=== PATIENT | female | born 1940 | race Two or more races ===

== ENCOUNTER 2017-11-18 15:21 | Outpatient (CLI) | payer OTHER ==
[~2017-11-18 15:21] MED LIST: CARAFATE; CELEBREX; INTESTINEX1 CAP PO; LEVOXYL50 MCG PO; MICARDIS HCT1 UDTA1 PO; PRILOSEC40 MG PO; ZANTAC150 MG PO
== END 2017-11-18 15:28 | disposition home or self-care (01) ==
LOC: MAMO-SONO 15:21
DX: Z12.31 Encounter for screening mammogram for malignant neoplasm of breast (principal); Z87.898 Personal history of other specified conditions; N60.11 Diffuse cystic mastopathy of right breast; R10.2 Pelvic and perineal pain

== ENCOUNTER → 2019-03-07 10:27 | Outpatient (CLI) | payer OTHER | END | disposition home or self-care (01) | LOC: LAB 10:27 | DX: R10.84 Generalized abdominal pain (principal); A05.8 Other specified bacterial foodborne intoxications; M19.91 Primary osteoarthritis, unspecified site ==

== ENCOUNTER 2021-01-17 11:38 | Emergency (ER) | payer OTHER ==
[~2021-01-17] VITALS: Ht 154.9 cm; Wt 74.8 kg
[2021-01-17] MEDS ORDERED: HYZAAR 100-12.1 EACH (11:58)
== END 2021-01-17 18:43 | disposition home or self-care (01) ==
LOC: ER 11:38
DX: N20.1 Calculus of ureter (principal)

== ENCOUNTER 2021-02-03 09:53 | Outpatient (CLI) | payer OTHER ==
[~2021-02-03 09:53] MED LIST changes: +HYZAAR 100-12.1 EACH
== END 2021-02-03 10:07 | disposition home or self-care (01) ==
LOC: SONOGRAMA 09:53
PROVIDERS: ATTEND Surgery
DX: N20.1 Calculus of ureter (principal)

== ENCOUNTER 2021-06-22 16:35 | Emergency (ER) | payer OTHER ==
[~2021-06-22] VITALS: Ht 154.9 cm; Wt 77.1 kg
[2021-06-22] MEDS ORDERED: TRICOR48 MG (17:01)
[2021-06-22] MEDS ORDERED: METOCLOPRAMIDE10 MG PO (23:23)
[2021-06-22] MEDS ORDERED: MEDI-MECLIZINE25 MG PO (23:23)
== END 2021-06-22 23:18 | disposition home or self-care (01) ==
LOC: ER 16:35
DX: R42 Dizziness and giddiness (principal); R53.1 Weakness; R11.0 Nausea; Z03.818 Encounter for observation for suspected exposure to other biological agents ruled out

== ENCOUNTER 2021-09-28 14:02 | Outpatient (CLI) | payer OTHER ==
[~2021-09-28 14:02] MED LIST changes: +MEDI-MECLIZINE25 MG PO; +METOCLOPRAMIDE10 MG PO; +TRICOR48 MG
== END 2021-09-28 14:08 | disposition home or self-care (01) ==
LOC: RAD 14:02
PROVIDERS: ATTEND Physical Medicine & Rehabilitation
DX: S43.401D Unspecified sprain of right shoulder joint, subsequent encounter (principal); M79.645 Pain in left finger(s)

== ENCOUNTER 2021-12-27 11:19 | Outpatient (CLI) | payer OTHER | END 2021-12-27 11:20 | disposition home or self-care (01) | LOC: NUCLEAR 11:19 | PROVIDERS: ATTEND Internal Medicine Cardiovascular Disease | DX: M81.0 Age-related osteoporosis without current pathological fracture (principal); E55.9 Vitamin D deficiency, unspecified ==

== ENCOUNTER 2021-12-27 12:02 | Outpatient (CLI) | payer OTHER | END 2021-12-27 12:06 | disposition home or self-care (01) | LOC: MAMO-SONO 12:02 | PROVIDERS: ATTEND Internal Medicine Cardiovascular Disease | DX: N63.11 Unspecified lump in the right breast, upper outer quadrant (principal); N60.11 Diffuse cystic mastopathy of right breast; N60.12 Diffuse cystic mastopathy of left breast ==

== ENCOUNTER 2022-04-02 09:30 | Inpatient (IN) | payer OTHER ==
[~2022-04-02] VITALS: Ht 154.9 cm; Wt 77.1 kg
[2022-04-17] MEDS ORDERED: VOLTAREN ARTHRI20 GM PO (12:05)
[2022-04-17] MEDS ORDERED: CLONAZEPAM0.5 M1 PO (12:06)
[2022-04-19] MEDS ORDERED: ACETAMINOPHEN325 M1 (13:41)
== END 2022-04-21 11:35 | disposition home or self-care (01) | DRG 583 ==
LOC: O/R 04-19 06:50 → SURG 04-19 06:50
PROVIDERS: ADMIT Specialist; ATTEND Specialist
PROC: 0HTT0ZZ Resection of Right Breast, Open Approach (ICD-10-PCS; principal; 2022-04-19 12:00)
DX: D05.11 Intraductal carcinoma in situ of right breast (principal); Z20.822 Contact with and (suspected) exposure to COVID-19

== ENCOUNTER 2023-03-05 10:48 | Outpatient (CLI) | payer OTHER ==
[~2023-03-05 10:48] MED LIST changes: +ACETAMINOPHEN325 M1; +CLONAZEPAM0.5 M1 PO; +VOLTAREN ARTHRI20 GM PO
== END 2023-03-05 10:55 | disposition home or self-care (01) ==
LOC: MAMO-SONO 10:48
PROVIDERS: ATTEND Specialist
DX: D05.11 Intraductal carcinoma in situ of right breast (principal)

== ENCOUNTER 2024-03-18 14:19 | Outpatient (CLI) | payer OTHER | END 2024-03-18 14:25 | disposition home or self-care (01) | LOC: MAMO-SONO 14:19 | PROVIDERS: ATTEND Internal Medicine Hematology & Oncology | DX: C50.411 Malignant neoplasm of upper-outer quadrant of right female breast (principal); Z85.3 Personal history of malignant neoplasm of breast; Z12.31 Encounter for screening mammogram for malignant neoplasm of breast ==

== ENCOUNTER 2024-06-24 11:44 | Outpatient (CLI) | payer OTHER | END 2024-06-24 11:45 | disposition home or self-care (01) | LOC: SONOGRAMA 11:44 | PROVIDERS: ATTEND Urology | DX: N39.0 Urinary tract infection, site not specified (principal) ==

== ENCOUNTER 2024-08-13 14:02 | Outpatient (CLI) | payer OTHER | END 2024-08-13 14:07 | disposition home or self-care (01) | LOC: RAD 14:02 | DX: M25.561 Pain in right knee (principal); M25.562 Pain in left knee ==

== ENCOUNTER 2024-09-07 09:06 | Outpatient (CLI) | payer OTHER ==
[2024-09-07 10:09] LABS: HEMATOCRIT 38.6 % (36.0-45.00); HEMOGLOBIN 12.9 g/dL (12.0-15.00); MEAN CELL VOLUME 86.2 fL (80.00-100.00); MEAN CORPUSCULAR HEMOGLOBIN 28.9 pg (27.00-32.0); MEAN CORPUSCULAR HGB CONC 33.5 g/dl (32.0-36.0); PLATELET COUNT 246 K/uL (150-450); RED BLOOD COUNT 4.48 M/uL (4.00-6.00); RED CELL DISTRIBUTION WIDTH 14.2 % (11.5-14.5)
[2024-09-07 10:17] LABS: PH,URINE 5.5 (5.0-8.0); URINE APPEARANCE Clear; URINE BILIRRUBIN Negative (NEGATIVE); URINE BLOOD Negative; URINE COLOR Yellow; URINE GLUCOSE Negative (NEGATIVE); URINE KETONE Negative (NEGATIVE); URINE LEUKOCYTE Small; URINE NITRATE Negative; URINE PROTEIN Negative (NEGATIVE); URINE UROBILINOGEN 0.2 E.U./dl
[2024-09-07 10:21] LABS: URINE BACTERIA 138.2 uL (0.0-1933); URINE EPITHELIAL CELLS 4.1 uL (0.0-38.8); URINE RBC 3.3 uL (0.0-20.8); URINE WBC 25.1 uL (0.0-23.2)
[2024-09-07 10:21] LABS: COL EPI 70 SECONDS (82-175)
[2024-09-07 10:28] LABS: INR 1.03; PARTIAL THROMBOPLASTIN TIME 24.5 SECONDS (22.0-34.0); PROTHROMBIN TIME 11.2 SECONDS (9.0-11.5)
[2024-09-07 10:47] LABS: ALBUMIN 3.9 gm/dL (3.4-5.0); BILIRUBIN TOTAL 0.68 mg/dL (0.3-1.2); CALCIUM 9.7 mg/dL (8.5-10.1); CREATININE SERUM 0.97 mg/dL (0.55-1.02); GFR 54.98; GLOBULINA 2.9 G/DL (2.4-3.5); POTASSIUM 4.73 mEq/L (3.5-5.1); TOTAL PROTEIN 6.8 gm/dL (6.4-8.2)
[2024-09-07 11:53] LABS: URINE CAST 0.14 uL (0.0-1.40)
== END 2024-09-07 09:07 | disposition home or self-care (01) ==
LOC: RAD 09:06
PROVIDERS: ATTEND Orthopaedic Surgery
DX: Z76.89 Persons encountering health services in other specified circumstances (principal); D64.9 Anemia, unspecified; E88.89 Other specified metabolic disorders; D68.8 Other specified coagulation defects; N39.0 Urinary tract infection, site not specified; Z22.322 Carrier or suspected carrier of Methicillin resistant Staphylococcus aureus; E11.9 Type 2 diabetes mellitus without complications

== ENCOUNTER 2024-10-19 14:29 | Inpatient (IN) | payer OTHER ==
[~2024-10-19] VITALS: Ht 165.1 cm; Wt 76.2 kg
--- NOTE | 2024-10-19 14:41 | NUR ---
PTE ALERTA Y ORIENTADA X3 VERBALIZA TENER PALPITACIONES CAUNDO DEVEN DIANE TRAMADOL LUEGO DE DIANE OPERACION DE RODILLA. SE LE FELIPE S/V Y SE UBICA
[2024-10-19] MEDS ORDERED: KETOROLAC TROMETHAMINE 30 MG VIAL IM STA (16:24)
[2024-10-19] MEDS ORDERED: KETOROLAC TROMETHAMINE 30 MG VIAL ONE (16:26)
[2024-10-19 16:32] LABS: HEMATOCRIT 40.7 % (36.0-45.00); HEMOGLOBIN 13.6 g/dL (12.0-15.00); MEAN CELL VOLUME 87.3 fL (80.00-100.00); MEAN CORPUSCULAR HEMOGLOBIN 29.2 pg (27.00-32.0); MEAN CORPUSCULAR HGB CONC 33.5 g/dl (32.0-36.0); PLATELET COUNT 316 K/uL (150-450); RED BLOOD COUNT 4.66 M/uL (4.00-6.00); RED CELL DISTRIBUTION WIDTH 13.7 % (11.5-14.5)
--- NOTE | 2024-10-19 16:40 | NUR ---
PACIENTE ALERTA Y ORIENTADA X3. SE EDUCA A PACIENTE SOBRE THANH DE MUESTRA SY ADMINISTRACION DE MEDICAMENTOS, REFIERE ENTENDER. SE EJECUTAN ORDENES BAJO MEDIDAS ASEPTICAS.
[2024-10-19 17:03] LABS: ALBUMIN 4.1 gm/dL (3.4-5.0); BILIRUBIN TOTAL 0.62 mg/dL (0.3-1.2); CALCIUM 9.9 mg/dL (8.5-10.1); CREATININE SERUM 1.01 mg/dL (0.55-1.02); GFR 52.47; GLOBULINA 3.1 G/DL (2.4-3.5); POTASSIUM 4.23 mEq/L (3.5-5.1); TOTAL PROTEIN 7.2 gm/dL (6.4-8.2)
[2024-10-19] MEDS ORDERED: ASPIRIN 325 MG TABLET.EC PO ONE (18:50)
[2024-10-19] MEDS ORDERED: DIPHENHYDRAMINE HCL 50 MG/ML VIAL 1ML ONE (18:50)
[2024-10-19] MEDS ORDERED: METHYLPREDNISOLONE SOD SUCC 125 MG VIAL ONE (18:51)
[2024-10-19] MEDS ORDERED: ASPIRIN 325 MG TABLET PO ONE (19:15)
[2024-10-19] MEDS ORDERED: DIPHENHYDRAMINE HCL 50 MG/ML VIAL 1ML IV ONE (19:15)
[2024-10-19] MEDS ORDERED: NITROGLYCERIN IN 5 % DEXTROSE 250 ML IV SCH (19:45)
--- NOTE | 2024-10-19 19:50 | NUR ---
SE ORIENTA PTE SOBRE TX A SEGUIR, LA MISMA REFIERE ENTENDER. SE INTENTA EN VARIAAS OCASIONES CANALIZAR PTE CON DIFERENTES RN. NO HUBO EXITO.
[2024-10-19 20:11] LABS: ABG PH 7.468 (7.35-7.45); ABG PO2 96.7 mmHg (80-100); ABG pCO2 29.7 mmHg (35-45); BASE EXCESS -1.4 mmol/l; BICARBONATE 21.1 mmol/l (23-25); SaO2 97.9 %
[2024-10-19] MEDS ORDERED: ENOXAPARIN SODIUM 60 MG/0.6 ML SYRINGE SUBCUTANEO ONE (20:16)
[2024-10-19] MEDS ORDERED: NITROGLYCERIN IN 5 % DEXTROSE 50 MG/250 ML BOTTLE IV ONE (20:16)
[2024-10-19 20:35] LABS: D DIMER 2.21 MG/L; PARTIAL THROMBOPLASTIN TIME 25.5 SECONDS (22.0-34.0)
[2024-10-19 20:45] LABS: INR 1.05; PROTHROMBIN TIME 11.4 SECONDS (9.0-11.5)
[2024-10-19 20:58] LABS: allen test SATISFACTORY; o2 21 %; puncture site RADIAL LEFT
[2024-10-19] MEDS ORDERED: ENOXAPARIN SODIUM 60 MG/0.6 ML SYRINGE SUBCUTANEO SCH (21:00)
[2024-10-19 21:05] LABS: URINE APPEARANCE Clear; URINE BILIRRUBIN Negative (NEGATIVE); URINE BLOOD Negative; URINE COLOR Yellow; URINE GLUCOSE Negative (NEGATIVE); URINE KETONE Negative (NEGATIVE); URINE LEUKOCYTE Trace; URINE NITRATE Negative; URINE PROTEIN Negative (NEGATIVE); URINE UROBILINOGEN 0.2 E.U./dl
[2024-10-19 21:08] LABS: URINE BACTERIA 29.3 uL (0.0-1933); URINE EPITHELIAL CELLS 1.8 uL (0.0-38.8); URINE RBC 4.7 uL (0.0-20.8); URINE WBC 2.8 uL (0.0-23.2)
[2024-10-19] MEDS ORDERED: 0.9 % SODIUM CHLORIDE 1,000 ML IV SCH (21:15)
[2024-10-19] MEDS ORDERED: ATORVASTATIN CALCIUM 40 MG TABLET PO SCH (21:25)
[2024-10-19] MEDS ORDERED: TICAGRELOR 90 MG TABLET PO ONE (21:30)
[2024-10-19] MEDS ORDERED: ACETAMINOPHEN 500 MG GEL..CAP PO PRN (21:30)
[2024-10-19] MEDS ORDERED: ONDANSETRON HCL 4 MG in 0.9 % SODIUM CHLORIDE 50 ML IV PRN (21:30)
[2024-10-19] MEDS ORDERED: GABAPENTIN 100 MG CAPSULE PO SCH (21:45)
[2024-10-19 22:07] VITALS: BP 164/78
[2024-10-19 22:55] VITALS: BP 135/83; O2SAT 100
[2024-10-20] VITALS (16 sets, daily range): BP systolic 97–152; BP diastolic 50–104; O2SAT 98–100
[2024-10-20] MEDS ORDERED: ACETAMINOPHEN 500 MG GEL..CAP PO ONE (02:01)
[2024-10-20] MEDS ORDERED: TICAGRELOR 90 MG TABLET PO ONE (03:53)
[2024-10-20] MEDS ORDERED: TICAGRELOR 90 MG TABLET PO SCH (05:00)
[2024-10-20] MEDS ORDERED: ONDANSETRON 4 MG TAB.RAPDIS PO ONE (05:04)
[2024-10-20] MEDS ORDERED: LEVOTHYROXINE SODIUM 88 MCG TABLET PO SCH (06:00)
[2024-10-20] MEDS ORDERED: NITROGLYCERIN IN 5 % DEXTROSE 250 ML IV SCH (07:00)
[2024-10-20 07:40] LABS: TSH 2.57 uIU/mL (0.358-3.74)
[2024-10-20] MEDS ORDERED: ASPIRIN 81 MG TAB.CHEW PO SCH (09:00)
[2024-10-20] MEDS ORDERED: FAMOTIDINE/PF 20 MG in 0.9 % SODIUM CHLORIDE 8 ML IV PUSH SCH (09:00)
[2024-10-20] MEDS ORDERED: hydrALAZINE HCL 50 MG TABLET PO SCH (20:40)
[2024-10-20] MEDS ORDERED: CLONAZEPAM 0.5 MG TABLET PO SCH (21:00)
[2024-10-20] MEDS ORDERED: GABAPENTIN 100 MG CAPSULE PO SCH (21:00)
[2024-10-20] MEDS ORDERED: FAMOTIDINE IV PUSH SCH (21:40)
[2024-10-20] MEDS ORDERED: FAMOTIDINE/PF 20 MG/2 ML VIAL ONE (21:40)
[2024-10-20] MEDS ORDERED: LACTOBACILLUS ACIDOPHILUS 1 CAP CAP PO SCH (21:40)
[2024-10-20] MEDS ORDERED: SODIUM CHLORIDE 0.9% IV PUSH SCH (21:40)
[2024-10-20] MEDS ORDERED: BISMUTH SUBSALICYLATE 262 MG/15 ML BLIST.PACK PO PRN (23:45)
[2024-10-21] MEDS ORDERED: NITROGLYCERIN IN 5 % DEXTROSE 50 MG/250 ML BOTTLE IV ONE (03:35)
[2024-10-21 04:04] VITALS: BP 114/59; O2SAT 99
[2024-10-21 07:40] VITALS: BP 115/86; O2SAT 98
[2024-10-21 07:48] LABS: HEMOGLOBIN 12.4 g/dL (12.0-15.00); MEAN CELL VOLUME 85.3 fL (80.00-100.00); MEAN CORPUSCULAR HEMOGLOBIN 29.3 pg (27.00-32.0); MEAN CORPUSCULAR HGB CONC 34.3 g/dl (32.0-36.0); PLATELET COUNT 317 K/uL (150-450); RED BLOOD COUNT 4.22 M/uL (4.00-6.00); RED CELL DISTRIBUTION WIDTH 13.8 % (11.5-14.5)
[2024-10-21 08:56] LABS: ALBUMIN 3.1 gm/dL (3.4-5.0); BILIRUBIN TOTAL 0.5 mg/dL (0.3-1.2); CALCIUM 9.3 mg/dL (8.5-10.1); CREATININE SERUM 0.88 mg/dL (0.55-1.02); GFR 61.52; GLOBULINA 2.7 G/DL (2.4-3.5); MAGNESIUM 1.6 mg/dL (1.8-2.4); PHOSPHOROUS 3.9 mg/dL (2.5-4.9); TOTAL PROTEIN 5.8 gm/dL (6.4-8.2)
[2024-10-21] MEDS ORDERED: FAMOTIDINE/PF 20 MG in 0.9 % SODIUM CHLORIDE 8 ML IV PUSH SCH (09:00)
[2024-10-21 12:00] VITALS: BP 109/62; O2SAT 100
[2024-10-21] MEDS ORDERED: KETOROLAC TROMETHAMINE 30 MG VIAL IV PRN (13:45)
[2024-10-21 16:00] VITALS: BP 109/58; O2SAT 100
[2024-10-21 20:00] VITALS: BP 118/66; O2SAT 100
[2024-10-21] MEDS ORDERED: ENOXAPARIN SODIUM 80 MG/0.8 ML SYRINGE SUBCUTANEO SCH (21:00)
[2024-10-22 01:54] VITALS: BP 106/60; O2SAT 97
[2024-10-22 09:09] VITALS: BP 97/58; O2SAT 98
== END 2024-10-22 15:18 | disposition home or self-care (01) | DRG 280 ==
LOC: ER 14:30 → ICU-2 21:27 → ICU 21:27 → MEDI 10-21 19:30 → ICU 10-21 19:32 → MEDI 10-21 21:32
PROVIDERS: General Practice; ADMIT Internal Medicine; ATTEND Internal Medicine
PROC: BW24YZZ Computerized Tomography (CT Scan) of Chest and Abdomen using Other Contrast (ICD-10-PCS; principal; 2024-10-19)
PROC: 02HV33Z Insertion of Infusion Device into Superior Vena Cava, Percutaneous Approach (ICD-10-PCS; 2024-10-19)
PROC: B24BYZZ Ultrasonography of Heart with Aorta using Other Contrast (ICD-10-PCS; 2024-10-20)
PROC: B54DZZZ Ultrasonography of Bilateral Lower Extremity Veins (ICD-10-PCS; 2024-10-20)
PROC: 4A12X4Z Monitoring of Cardiac Electrical Activity, External Approach (ICD-10-PCS; 2024-10-22)
DX: I24.9 Acute ischemic heart disease, unspecified (principal); I26.99 Other pulmonary embolism without acute cor pulmonale; I21.4 Non-ST elevation (NSTEMI) myocardial infarction; I82.409 Acute embolism and thrombosis of unspecified deep veins of unspecified lower extremity; N17.9 Acute kidney failure, unspecified

== ENCOUNTER 2025-03-23 10:17 | Outpatient (CLI) | payer OTHER | END 2025-03-23 10:18 | disposition home or self-care (01) | LOC: MAMO-SONO 10:17 | PROVIDERS: ATTEND Specialist | DX: N60.12 Diffuse cystic mastopathy of left breast (principal); Z90.11 Acquired absence of right breast and nipple; Z85.3 Personal history of malignant neoplasm of breast ==

== ENCOUNTER → 2025-03-23 10:45 | Outpatient (CLI) | payer OTHER | END | disposition home or self-care (01) | LOC: NUCLEAR 10:45 | PROVIDERS: ATTEND Orthopaedic Surgery | DX: M81.0 Age-related osteoporosis without current pathological fracture (principal) ==

== ENCOUNTER 2025-06-29 09:03 | Emergency (ER) | payer OTHER ==
[~2025-06-29] VITALS: Ht 154.9 cm; Wt 74.4 kg
[2025-06-29 10:27] VITALS: BP 148/77; O2SAT 97
[2025-06-29] MEDS ORDERED: ELIQUIS2.5 MG PO (10:33)
[2025-06-29] MEDS ORDERED: KETOROLAC TROMETHAMINE 30 MG VIAL ONE (10:55)
[2025-06-29] MEDS ORDERED: METOCLOPRAMIDE HCL 5 MG/ML VIAL ONE (10:55)
[2025-06-29] MEDS ORDERED: CIPROFLOXACIN IN 5 % DEXTROSE 400 MG/200 ML PIGGYBAG IV ONE ×2 (10:56→11:00)
[2025-06-29] MEDS ORDERED: FAMOTIDINE/PF 20 MG/2 ML VIAL ONE (10:56)
[2025-06-29] MEDS ORDERED: METRONIDAZOLE/SODIUM CHLORIDE 500 MG/100 ML PIGGYBACK IV ONE ×2 (10:56→11:00)
[2025-06-29] MEDS ORDERED: SODIUM CHLORIDE 0.45 % 1,000 ML IV ONE (11:00)
[2025-06-29] MEDS ORDERED: KETOROLAC TROMETHAMINE 15 MG VIAL IU ONE (11:00)
[2025-06-29] MEDS ORDERED: FAMOTIDINE/PF 20 MG/2 ML VIAL IV ONE (11:00)
[2025-06-29] MEDS ORDERED: METOCLOPRAMIDE HCL 10 MG in 0.9 % SODIUM CHLORIDE 50 ML IV ONE (11:00)
[2025-06-29 12:54] LABS: INR 1.18
[2025-06-29 12:56] LABS: ALT/SGPT 20 U/L (12-78); AST/SGOT 12 U/L (15-37); BILIRUBIN TOTAL 0.79 mg/dL (0.3-1.2); BILIRUBIN,CONJUGATED 0.20 mg/dL (0.0-0.2); BUN CREA RATIO 16 (7.0-25.0); CREATININE SERUM 0.87 mg/dL (0.55-1.02); GFR 62.18; GLUCOSE FASTING 93 mg/dL (65-100); OSMOLALITY SERUM 281 MOSM/KG (275-295)
[2025-06-29 12:59] LABS: BASO % 0.6 % (0.1-1.2); EOS # 0.06 (0.04-0.54); EOS % 0.6 % (0.7-7.0); LYMPH # 2.06 (1.18-3.74); LYMPH % 20.9 % (19.3-53.1); MEAN PLATELET VOLUME 10.00 fl (9.4-12.4); MONO # 0.64 (0.24-0.82); MONO % 6.5 % (4.7-12.5); NEUT # 6.99 (1.56-6.13); NEUT % 71.1 % (34.0-71.1); RED CELL DISTRIBUTION WIDTH 12.3 % (11.6-14.4)
[2025-06-29] MEDS ORDERED: DIATRIZOATE MEGLUMINE, SODIUM 30 ML BOTTLE ONE (13:22)
[2025-06-29 13:39] LABS: URINE APPEARANCE Clear; URINE BILIRRUBIN Small (NEGATIVE); URINE BLOOD Negative; URINE COLOR Dark Yellow; URINE GLUCOSE Negative (NEGATIVE); URINE KETONE Trace (NEGATIVE); URINE LEUKOCYTE Moderate; URINE NITRATE Negative; URINE PROTEIN 30 (NEGATIVE); URINE UROBILINOGEN 1.0 E.U./dl
[2025-06-29 13:43] LABS: URINE BACTERIA 544.5 uL (0.0-1933); URINE CAST 8.49 uL (0.0-1.40); URINE EPITHELIAL CELLS 89.8 uL (0.0-38.8); URINE RBC 11.7 uL (0.0-20.8); URINE WBC 161.6 uL (0.0-23.2)
[2025-06-29 14:03] LABS: URINE MUCUS HEAVY
[2025-06-29 14:09] LABS: COVID-19 AG NEGATIVE (NEGATIVE)
[2025-06-29] MEDS ORDERED: INTESTINEX680 M2 PO (18:19)
[2025-06-29] MEDS ORDERED: LEVSIN/SL0.125 MG SL (18:19)
== END 2025-06-29 18:52 | disposition home or self-care (01) ==
LOC: ER 09:04
PROVIDERS: General Practice
DX: K52.89 Other specified noninfective gastroenteritis and colitis (principal); R10.9 Unspecified abdominal pain; R10.13 Epigastric pain; A08.8 Other specified intestinal infections; R11.2 Nausea with vomiting, unspecified; I10 Essential (primary) hypertension; Z88.5 Allergy status to narcotic agent; Z20.822 Contact with and (suspected) exposure to COVID-19
CPT/HCPCS: 36415; 74177; 96365; 99284; J0744; J1885; J3490 ×3; Q9965